=== PATIENT | female | born 2000 | race Caucasian/White ===

== ENCOUNTER 2021-03-04 08:49 | Outpatient (RCR) | payer OTHER, SELFPAY ==
--- NOTE | 2021-03-13 12:51 | MHC.SP.ADU ---
Referring provider: Prema Wright M.D. Reason for Referral: Extensive history of speech/language disorder Type of Treatment: 91285 Evaluation Speech Sound Production WITH Language Date of Plan of Treatment: 03/04/21 Onset of Symptoms/Illness: 01 Date Treatment Started: 03/04/21 Medical Diagnosis: intellectual functioning disability thyroid issues Primary Speech Language Diagnosis: F80.0 Specific developmental disorders of speech and language Secondary Speech Language Diagnosis: F80.2 Mixed receptive-expressive language disorder History Allegra is a 20 year old Egyptian and Georgian speaking female who was evaluated today due to concerns regarding her communication skills. Allegra was referred by her primary care physician, Prema Wright M.D., and was accompanied to this evaluation by her mother, Ms. Maura Allan, who provided all relevant background information in this report. Medical history is significant for thyroid issues and intellectual functioning disability. Allegra has extensive history participating in speech therapy. Allegra participated in Early Intervention (E.I.) services until she aged out at 4 years old. When she began kindergarten, she continued speech therapy services at school. Allegra completed high school where she had an Individualized Education Plan (IEP) which reportedly stipulated services with a speech therapist and computer system validation specialist. Ms. Allan reports that Allegra also had accommodations in the classroom, but was unable to recall them specifically. Allegra lives at home with her mother. Allegra and her mother identified the following concerns: difficulty expressing thoughts, difficulty being understood by others, difficulty understanding what others are saying. Medical History: Intellectual Deficits Social History: Comment: Past Speech Language Therapy: Allegra has extensive history participating in speech therapy. Allegra participated in Early Intervention (E.I.) services until she aged out at 4 years old. When she began kindergarten, she continued speech therapy services at school. Allegra completed high school where she had an Individualized Education Plan (IEP) which reportedly stipulated services with a speech therapist and computer system validation specialist. Reported Speech, Language, Cognition difficulties: Understanding Speaking Comments: Patient presents with a severe articulation impairment and severe receptive-expressive language disorder, likely secondary to intellectual functioning disability Assessment Speech Production: Clinical Impression: Impaired Observations: ARTICULATION: Allegra was administered an articulation assessment tool standardized in Egyptian because she named most images in Egyptian during expressive vocabulary testing. Allegra was evaluated using the Gordon Fristoe Test of Articulation -3 (GFTA-3). The Gordon Fristoe Test of Articulation-3 (GFTA-3) is a standardized assessment designed to evaluate speech sound abilities in children, adolescents, and adults ages 2;0 through 21;11 years old. The GFTA-3 assesses the production of Egyptian consonant sounds in the initial, medial, and final position of words. Allegra was administered the Sounds in Words subtest, to measure her production of consonant sounds in various positions at the word level. Her performance is summarized below: Sounds in Words Score Summary Raw Score: 36 Standard Score: 40 Percentile Rank: <0.1% Interpretation: Very low/severe Standardized assessment revealed severe articulation impairment. Allegra presented with the following phonological processing patterns: consonant cluster reduction (i.e. slide produced as ?side?), assimilation (i.e. table produced as ?ta-tle?), gliding (i.e. red produced as ?wed?), deaffrication (i.e. chair produced as ?share?), final consonant deletion (soap produced as ?so?), and stopping (i.e. thumb produced as ?tumb?). Allegra was approximately 50-60% intelligible to the clinician, an unfamiliar but trained listener. The clinician often asked Allegra for repetition or clarification due to reduced speech intelligibility. Please note that the GFTA-3 is not normed on the bilingual Georgian and Egyptian speaking population. Although Allegra preferred to express herself in Egyptian, these scores are to be interpreted with caution. Tests of Speech & Lang Adults: Clinical Impression: Impaired Observations: EXPRESSIVE/RECEPTIVE VOCABULARY: The Bilingual Georgian Egyptian Receptive One Word Picture Vocabulary Test (ROWPVT-BSE) assesses understanding of vocabulary by measuring an individual?s ability to match an object, action, or concept with its name. Allegra was administered the bilingual version of this assessment, in which prompts could be provided in either Egyptian or Georgian. She responded to all prompts provided in Egyptian. Allegra?s raw score of 70 correlates to a standard score of <55 and a percentile rank of <1%. These scores indicate below average receptive vocabulary skills compared to age matched peers. The Bilingual Georgian Egyptian Expressive One Word Picture Vocabulary Test (EOWPVT-BSE) assesses an individual?s use of vocabulary to label objects, actions or concepts by name. Allegra was administered the bilingual version of this assessment, in which responses in Egyptian or Georgian were both considered valid. She responded to 100% of prompts in Egyptian only. Allegra?s raw score of 44 correlates to a standard score of <55 and a percentile rank of <1%. These scores indicate below average expressive vocabulary skills compared to age matched peers. RECEPTIVE/EXPRESSIVE LANGUAGE: The Comprehensive Assessment of Spoken Language- Second Edition (CASL-2) is a standardized assessment used to evaluate an individual?s oral language skills. The CASL-2 is normed on individuals age 3 to 21 years old, and consists of the following batteries which represent general areas of oral language function: Lexical/ Semantic Tests, Syntactic Tests, and Supralinguistic and Pragmatic Tests. Allegra was administered selected subtests from the Syntactic Tests of the CASL-2. Her performance on individual subtests is summarized below. A standard score between 85 and 115 is considered to be average as compared to same age peers. 1. Sentence Expression: *DEFICIENT Raw Score:8 Standard Score: 40 Percentile Rank: <0.1% The Sentence Expression subtest measures the ?oral expression of accurate syntax; grammatical morphemes, sentence structure, and word order.? Allegra?s raw score of 8 correlates to a standard score of 40 and percentile rank <0.1%, indicating deficient performance as compared to same-age peers. Allegra formulated short phrases and short simple sentences. Allegra demonstrates inconsistent use of early prepositions, copula verb, and present progressive ?ing marker. 2. Grammatical Morphemes: *DEFICIENT Raw Score: 1 Standard Score: 40 Percentile Rank: <0.1% The Grammatical Morphemes subtest measures the ?knowledge, retrieval, and oral expression of inflections and function words.? Allegra?s raw score of 1 correlates to a standard score of 40 and percentile rank of <0.1%. This indicates deficient performance as compared to same age peers. Allegra demonstrates limited use of grammatical morphemes. During this subtest, Allegra completed a cloze phrase with pronoun ?mine.? She demonstrates limited expressive use of prepositions, copula verb, possessive ?s marker, plural ?s/-es marker, past tense verbs. 3. Sentence Comprehension: *DEFICIENT Raw Score: 16 Standard Score: 40 Percentile Rank: <0.1% The Sentence Comprehension subtest was administered to assess Allegra?s ?recognition of the meaning of sentences that have similar structures and words.? Allegra?s raw score of 16 correlated to a standard score of 40 and percentile rank of <0.1%. This indicates deficient performance as compared to peers of the same age. Allegra matched images to sentences utilizing compound subjects/predicates, early pronouns he/they/she, some prepositions, plural ?s, present progressive ?ing, possessive ?s. Allegra demonstrates knowledge of these grammatical forms though her expressive use is limited. Allegra exhibited difficulty matching images to sentences utilizing irregular plural form, irregular past tense, possessive pronouns, comparative adjectives, superlative adjectives, negation. Impressions and Recommendations Summary: Impact on Daily Function/Activity Limitations: Daily Activities: Severe Interpersonal Interactions: Severe Education: Moderate Employment: Moderate Community: Severe Prognosis for Improvement: Good Recommendation for Speech Therapy: Outpatient Speech Therapy Frequency/Duration: 1x weekly x 12 weeks Time to Reassess: 6 months 1.? It is recommended that Allegra participate in 12 weekly speech therapy sessions to target receptive-expressive language skills and compensatory strategies for improved speech intelligibility (pacing, slowing rate of speech, segmentation). The following goals/objectives are recommended: LT.? Allegra will be administered selected standardized assessments with 100% completion to update goals as needed. 2.? Allegra will improve her overall speech intelligibility in connected speech. 3.? Allegra will increase use of grammatical morphemes and increase knowledge and use of vocabulary words within functional categories. Short Term Goals: Goal # : 1.1. Allegra will complete the Communication Activities of Daily Living- 2nd Edition (CADL-2) to further assess functional communication skills with 100% completion over the course of 1-2 sessions. Goal Status: New Goal Goal# : 2.1. Allegra will use a pacing board and segmentation cues to improve articulation while producing multisyllabic words (2-4 syllables) in 80% of trials when provided with an immediate verbal and visual model and additional verbal cues (moderate to maximal assistance). Goal Status: New Goal Goal # : 2.2. Allegra will use segmentation and tactile cues (i.e. clap for final consonant ?ba??g!?) to nile final consonant sounds in 80% of trials when provided with an immediate verbal and visual model and additional verbal cues (moderate to maximal assistance). Goal Status: New Goal Goal # : 3.1. Allegra will form complete SVO (ahfiuxd-qbex-suqfqz) sentences using the correct subject pronoun he/she/they, auxiliary verb is/are, and present progressive ?ing marker with 80% accuracy during a highly structured picture description activity when provided with moderate level cues. 3.2. Allegra will name and sort items into functional categories (i.e. clothing, food, animals, places, occupations, household items, etc.) with 80% accuracy when provided with a choice of 2-3 and moderate level assistance. Goal Status: New Goal Recommended Referrals to be Discussed with Primary Care Provider: Occupational Therapy Eval Patient Education: Completed: Yes Patient/Caregiver Education: Described Results of Evaluation Family/Caregivers expressed understanding of results Finishing Machine Tender Clinican/Clinical Fellow: No Supervisory Statement: N/A Speech Language Pathologist: Chantal Roberts M.A., CCC-FIREARMS ASSEMBLY SUPERVISOR
== END 2021-04-27 12:55 | disposition other institution (70) ==
LOC: HO.SH 08:49
PROVIDERS: Visit Provider Pediatrics
DX: F80.0 Phonological disorder (principal); F80.2 Mixed receptive-expressive language disorder
CPT/HCPCS: 92523

== ENCOUNTER 2024-05-04 10:11 | Outpatient (REF) | payer OTHER, SELFPAY ==
[2024-05-04 12:24] LABS: TSH reflex Free T4 14.16 uIU/mL (0.32-4.0)
[2024-05-04 12:36] LABS: Anion Gap 12 (12-20)
[2024-05-04 12:40] LABS: Blood Urea Nitrogen 11 mg/dL (9-16); Carbon Dioxide 26 mmol/L (22-29); Chloride 107 mmol/L (96-108); Estimated Glomerular Filt Rate > 60; Glucose Random 120 mg/dL (60-115); Magnesium 1.7 mg/dL (1.6-2.6); Potassium 3.6 mmol/L (3.3-5.1); Sodium 141 mmol/L (135-145)
[2024-05-04 13:01] LABS: Free T4 (Free Thyroxine) 0.97 ng/dL (0.71-1.85)
[2024-05-09 21:53] LABS: CK-BB None Detected (None Detected); CK-MB 0 % (<5); CK-MM 100 % (95-100); Creatine Kinase,Total,Serum 38 U/L (29-143)
== END 2024-05-04 10:12 | disposition home or self-care (01) ==
LOC: HO.HHCL 10:11
PROVIDERS: Visit Provider Nurse Practitioner Family
DX: G24.9 Dystonia, unspecified (principal)
CPT/HCPCS: 36415; 80048; 82552; 83735; 84439; 84443

== ENCOUNTER 2024-08-29 11:38 | Outpatient (REF) | payer MEDICAID, SELFPAY ==
[2024-08-29 14:16] LABS: TSH reflex Free T4 2.03 uIU/mL (0.32-4.0)
--- OUTSIDE RECORDS SUMMARY | 2024-08-29 14:40 | XMS_ITS | Encounter Summary ---
Author Organization [facility] Address [address] [place], [place] [address] Phone Care Team Providers Care Expansion Joint Finisher Name Role Phone Prema Wright MD Primary Care Provider [phone] Encounter Details Date Type Department Care Team (Late st Contact Info) Description 09/26/2012 Documentation [facility] [place] [address] [place] [address] Family Medicine, Physician [address] [place] [address] Social History Tobacco Use Types Packs/Day Years Used Date Smoking Tobacco: Never Assessed Comments Unknown Sex and Gender Information Value Date Recorded Sex Assigned at Not on file Legal Sex Female 5:06 PM EDT Gender Identity Not on file Sexual Orientation Not on file documented as of this encounter Plan of Treatment Not on file documented as of this encounter Visit Diagnoses Not on filedocumented in this encounter Care Teams Expansion Joint Finisher Relationship Specialty Start Date End Date Prema Wright MD PCP - General Pediatrics 07/15/20 02/08/23 documented as of this encounter
--- OUTSIDE RECORDS SUMMARY | 2024-08-29 14:40 | XMS_ITS | Encounter Summary ---
Author Organization [facility] Address [address] [place], [place] [address] Phone Care Team Providers Care Supervisor Pumping Station Name Role Phone Prema Wright MD Primary Care Provider [phone] Encounter Details Date Type Department Care Team (Late st Contact Info) Description 10/12/2012 [place] [facility] [place] [address] [place] [address] Family Medicine, Physician [address] [place], [place] [address] Social History Tobacco Use Types Packs/Day Years [...] on filedocumented in this encounter Care Teams Supervisor Pumping Station Relationship Specialty Start Date End Date Prema Wright MD PCP - General Pediatrics 07/15/20 02/08/23 documented as of this encounter
--- OUTSIDE RECORDS SUMMARY | 2024-08-29 14:40 | XMS_ITS | Encounter Summary ---
Author Organization [facility] Address [address] [place], [place] [address] Phone Care Team Providers Care Hasher Machine Operator Name Role Phone Perma Wright MD Primary Care Provider [phone] Encounter Details Date Type Department Care Team (Late st Contact Info) Description 09/26/2012 Documentation [facility] [place] [address] [place] [address] Family Medicine, Physician [address] [place] [address] Social History Tobacco Use Types Packs/Day Years [...] on filedocumented in this encounter Care Teams Hasher Machine Operator Relationship Specialty Start Date End Date Prema Wright MD PCP - General Pediatrics 07/15/20 02/08/23 documented as of this encounter
--- OUTSIDE RECORDS SUMMARY | 2024-08-29 14:40 | XMS_ITS | Encounter Summary ---
Author Organization [facility] Address [address] [place], [place] [address] Phone Care Team Providers Care Metal Burrer Name Role Phone Prema Wright MD Primary Care Provider [phone] Encounter Details Date Type Department Care Team (Late st Contact Info) Description 10/11/2012 Documentation [facility] [place] [address] [place] [address] Family Medicine, Physician [address] [place] [address] Social History Tobacco Use Types Packs/Day Years [...] on filedocumented in this encounter Care Teams Metal Burrer Relationship Specialty Start Date End Date Prema Wright MD PCP - General Pediatrics 07/15/20 02/08/23 documented as of this encounter
--- OUTSIDE RECORDS SUMMARY | 2024-08-29 14:41 | XMS_ITS | Encounter Summary ---
Author Organization [facility] Address [address] [place], [place] [address] Phone Care Team Providers Care Headrig Sawyer Name Role Phone Prema Wright MD Primary Care Provider [phone] Encounter Details Date Type Department Care Team (Late st Contact Info) Description 10/29/2014 Documentation [facility] [place] Family Medicine [address] [place] [address] Family Medicine, Physician [address] [place] [address] Social History Tobacco Use Types Packs/Day Years [...] on filedocumented in this encounter Care Teams Headrig Sawyer Relationship Specialty Start Date End Date Prema Wright MD PCP - General Pediatrics 07/15/20 02/08/23 documented as of this encounter
--- OUTSIDE RECORDS SUMMARY | 2024-08-29 14:41 | XMS_ITS | Encounter Summary ---
Author Organization [facility] Address [address] [place], [place] [address] Phone Care Team Providers Care Pathology Lab Technician Name Role Phone Prema Wright MD Primary Care Provider [phone] Encounter Details Date Type Department Care Team (Late st Contact Info) Description 07/13/2013 Documentation [facility] [place] [address] [place] [address] Family Medicine, Physician [address] [place] [address] Social History Tobacco Use Types Packs/Day Years [...] on filedocumented in this encounter Care Teams Pathology Lab Technician Relationship Specialty Start Date End Date Prema Wright MD PCP - General Pediatrics 07/15/20 02/08/23 documented as of this encounter
--- OUTSIDE RECORDS SUMMARY | 2024-08-29 14:41 | XMS_ITS | Encounter Summary ---
Author Organization [facility] Address [address] [place], [place] [address] Phone Care Team Providers Care Dioramist Name Role Phone Prema Wright MD Primary Care Provider [phone] Encounter Details Date Type Department Care Team (Late st Contact Info) Description 07/25/2013 Documentation [facility] [place] Family Medicine [address] [place] [address] Family Medicine, Physician [address] [place] [address] Social History Tobacco Use Types Packs/Day Years [...] on filedocumented in this encounter Care Teams Dioramist Relationship Specialty Start Date End Date Prema Wright MD PCP - General Pediatrics 07/15/20 02/08/23 documented as of this encounter
--- OUTSIDE RECORDS SUMMARY | 2024-08-29 14:41 | XMS_ITS | Encounter Summary ---
Author Organization [facility] Address [address] [place], [place] [address] Phone Care Team Providers Care Truck Despatcher Name Role Phone Prema Wright MD Primary Care Provider [phone] Encounter Details Date Type Department Care Team (Late st Contact Info) Description 04/19/2014 Documentation [facility] [place] [address] [place] [address] Family Medicine, Physician [address] [place] [address] Social History Tobacco Use Types Packs/Day Years [...] on filedocumented in this encounter Care Teams Truck Despatcher Relationship Specialty Start Date End Date Prema Wright MD PCP - General Pediatrics 07/15/20 02/08/23 documented as of this encounter
--- OUTSIDE RECORDS SUMMARY | 2024-08-29 14:41 | XMS_ITS | Encounter Summary ---
Author Organization [facility] Address [address] [place], [place] [address] Phone Care Team Providers Care Quantitative Software Engineer Name Role Phone Prema Wright MD Primary Care Provider [phone] Encounter Details Date Type Department Care Team (Late st Contact Info) Description 02/01/2014 [place] [facility] [place] [address] [place] [address] Family Medicine, Physician [address] [place] [address] Social History Tobacco Use Types Packs/Day Years [...] on filedocumented in this encounter Care Teams Quantitative Software Engineer Relationship Specialty Start Date End Date Prema Wright MD PCP - General Pediatrics 07/15/20 02/08/23 documented as of this encounter
--- OUTSIDE RECORDS SUMMARY | 2024-08-29 14:41 | XMS_ITS | Encounter Summary ---
Author Organization [facility] Address [address] [place], [place] [address] Phone Care Team Providers Care Access Clinician Name Role Phone Prema Wright MD Primary Care Provider [phone] Encounter Details Date Type Department Care Team (Late st Contact Info) Description 08/04/2012 Documentation [facility] [place] [address] [place] [address] Family Medicine, Physician [address] [place] [address] Social History Tobacco Use Types Packs/Day Years [...] on filedocumented in this encounter Care Teams Access Clinician Relationship Specialty Start Date End Date Prema Wright MD PCP - General Pediatrics 07/15/20 02/08/23 documented as of this encounter
--- OUTSIDE RECORDS SUMMARY | 2024-08-29 14:41 | XMS_ITS | Encounter Summary ---
Author Organization [facility] Address [address] [place], [place] [address] Phone Care Team Providers Care Casino Investigator Name Role Phone Prema Wright MD Primary Care Provider [phone] Encounter Details Date Type Department Care Team (Late st Contact Info) Description 10/29/2015 [place] [facility] [place] [address] [place] [address] Family Medicine, Physician [address] [place], [place] [address] Social History Tobacco Use Types Packs/Day Years [...] on filedocumented in this encounter Care Teams Casino Investigator Relationship Specialty Start Date End Date Prema Wright MD PCP - General Pediatrics 07/15/20 02/08/23 documented as of this encounter
--- OUTSIDE RECORDS SUMMARY | 2024-08-29 14:41 | XMS_ITS | Encounter Summary ---
Author Organization [facility] Address [address] [place], [place] [address] Phone Care Team Providers Care Bilingual Account Manager Name Role Phone Prema Wright MD Primary Care Provider [phone] Encounter Details Date Type Department Care Team (Late st Contact Info) Description 11/11/2015 [place] [facility] [place] [address] [place] [address] Family Medicine, Physician [address] [place], [place] [address] Social History Tobacco Use Types Packs/Day Years [...] on filedocumented in this encounter Care Teams Bilingual Account Manager Relationship Specialty Start Date End Date Prema Wright MD PCP - General Pediatrics 07/15/20 02/08/23 documented as of this encounter
--- OUTSIDE RECORDS SUMMARY | 2024-08-29 14:41 | XMS_ITS | Encounter Summary ---
Author Organization [facility] Address [address] [place], [place] [address] Phone Care Team Providers Care Manager Asset Management Name Role Phone Prema Wright MD Primary Care Provider [phone] Encounter Details Date Type Department Care Team (Late st Contact Info) Description 11/06/2012 Documentation [facility] [place] [address] [place] [address] Family Medicine, Physician [address] [place], [place] [address] Social History Tobacco Use Types Packs/Day Years [...] on filedocumented in this encounter Care Teams Manager Asset Management Relationship Specialty Start Date End Date Prema Wright MD PCP - General Pediatrics 07/15/20 02/08/23 documented as of this encounter
--- OUTSIDE RECORDS SUMMARY | 2024-08-29 14:41 | XMS_ITS | Encounter Summary ---
Author Organization [facility] Address [address] [place], [place] [address] Phone Care Team Providers Care Electronic Pagination System Operator Name Role Phone Prema Wright MD Primary Care Provider Encounter Details Date Type Department Care Team (Late st Contact Info) Description 01/02/2013 Documentation [facility] [place] Family Medicine [address] [place] [address] Family Medicine, Physician [address] [place] [address] Social History Tobacco Use Types Packs/Day Years [...] on filedocumented in this encounter Care Teams Electronic Pagination System Operator Relationship Specialty Start Date End Date Prema Wright MD PCP - General Pediatrics 07/15/20 02/08/23 documented as of this encounter
--- OUTSIDE RECORDS SUMMARY | 2024-08-29 14:41 | XMS_ITS | Clinical Summary ---
Author Organization [employer] Address [address] [facility] [address] [place] [address] Care Team Providers Care Timber Trimmer Name Role Phone Nicole Felix [facility] Primary Care Provider [phone] Allergies Active Allergy Reactions Criticality Noted Date Comments Methimazole Rash Low 07/08/2021 Medications * This document contains information received from the source organization and may not represent a complete record from that organization. ibuprofen 600 MG tablet Take 600 mg by mouth every 6 (six) hours if needed. 0 Active albuterol 108 (90 Base) MCG/ACT inhalerIndicatio ns:Mild intermittent asthma without complication Inhale 1 puff every 6 (six) hours if needed for wheezing. 18 g 1 4 Active ketoconazole (NIZOral) 2 % cream Wash hands gently with soap, dry and apply small amount to hands and nails twice daily 60 g 1 4 Active docusate sodium (Colace) 100 MG capsuleIndicatio ns:Slow transit constipation TAKE 1 CAPSULE BY MOUTH EVERY DAY FOR CONSTIPATION 90 capsule 1 4 Active polyethylene glycol, PEG, 3350 (MiraLax) 17 GM/SCOOP powderIndication s:Slow transit constipation MIX 17 GRAMS IN 8 OZ FLUIDS EVERY DAY IF NEEDED FOR CONSTIPATION. 527 g 1 4 Active levothyroxine (Synthroid, Levoxyl) 112 MCG tablet Take 1 tablet (112 mcg) by mouth Once per day. 90 tablet 1 4 Active Active Problems Problem Noted Date Diagnosed Date Mild intermittent asthma without complication Assessment & Plan (05/03/2024 11:56 AM EDT): No recent asthma exacerbation Asthma plan Use your inhaler as prescribed Slow transit constipation 05/03/2024 Assessment & Plan (05/03/2024 11:23 AM EDT): Increase fiber and water intake Increase physical activities such as walking Set a regular time for daily bowel movement Take medication as prescribed Onychomycosis 05/03/2024 Assessment & Plan (05/03/2024 11:47 AM EDT): Finger nails: thickened, brittle, partially from the nail bed Keep hands clean and finger nails short Apply prescribed cream as directed Encounter for adult wellness visit 05/03/2024 Assessment & Plan (05/03/2024 11:53 AM EDT): Keep all medical appointments Take all meds as prescribed Take your vaccines [place] teeth twice a day; floss once. - Visit dentist twice a year. -Protect your hearing. -Wear safety belt. Eat 3 meals a day, especially breakfast Eat healthy and focus on healthyfood choices daily fruits, vegetables, grains, low fat milk, low carbohydrate and fat Maintain healthy weight. Eat with family Be physically active at least 45 minutes a day Graves disease 05/02/2024 Fungal dermatitis 09/15/2022 Postablative hypothyroidism 09/13/2022 Overview (05/03/2024): 07/2012: Onset Graves disease started Methimazole 08/2012: Discontinued due to allergic reaction, 02/2013: s/p radioactive ablation 2013: started levothyroxine levothyroxione 100 mcg, yearly f/ups Last seen Dr Washburn 07/16/21 Assessment & Plan (06/04/2024 12:26 PM EST): TSH 05/04/2024 14.16 Currently on 112 mcg of levothyroxine daily Allegra maxwell reports daughter still taking the old dosage of 88 mcg, Mum told to start to start the 112 mcg. Denies fever, nausea,constipation. Plan Start taking levothyroxine 112 mcg as prescribed Patient education - Take your medication on an empty stomach at 30 minutes before eating breakfast Do not take medication with caffeine drinks such as coffee and tea Do not take 2 doses to make up for missed dose Repeat blood work for TSH 6-8 weeks Assessment & Plan (05/03/2024 10:53 AM EDT): Pt symptomatic with constipation, fatigue and low mood Currently takes 112 mcg levothyroxine No current TSH lab result overdue TSH with reflex to FT4 lab Depressed mood 07/09/2021 Genetic defect 07/24/2020 Overview (05/02/2024): History of Microcephaly and severe developmental delays, chromosomes normal; estimated IQ 54 per Neuropsych eval 2007; MRI with no focal abnormalities beyond microcephaly; Genetics consult 01/2018 [employer]- 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 Maternal FISH studies ordered 04/2018 Contracture of joint of both hands 01/15/2020 Assessment & Plan (05/03/2024 11:18 AM EDT): Referral to neurologist Lab work Stretch exercises Dystonia 10/16/2018 Overview (05/03/2024): 10/2018: Clenching of hands-Evaluated by neurologist Dr Claudia Sandoval, [facility]. No treatment, no meds. 2020:Worsening clenching of hands. Mri brain/C-spine unremarkable Referred to PMR at [facility] - canceled 3 appts d/t lack of ID [facility]- Dystonia, facial pain possible migraine variant,suggested PM+R OT scheduled for [facility] rehab: no show Assessment & Plan (05/03/2024 11:10 AM EDT): Dystonia with flexion contractures Chronic wetness Maceration of bilateral palms with fungal dermatitis and onychomycosis Referral to neurologist Lab blood work Jose Luis hands and keep dry. Apply antifungal cream as prescribed Keep nails short Keep rolled clean hand towels in hands to absorb excess moisture Severe intellectual disability 06/12/2010 Overview (05/03/2024): Microcephaly and developmental delays, chromos neg; IQ 54 per Neuropsych 2007; MRI with no focal abnormalities beyond microcephaly 11/2020: Neuropsych eval by Dr Tyesha Kee : Severe ID, recommended continued participation in the [employer] program, anticipated need for ongoing day treatment program for disabled adults when she reaches 23, mother encouraged to pursue legal guardianship as well as DDS services support. Speech language therapy for adaptive communication, OT, and in-home behavioral support for adaptive skills and safety training 03/2021: ST eval at [facility] documenting severe communication deficits, recommended weekly sessions x 12 Patient was discharged from care 04/2021 for no show and inability to reach family 09/2022: Mother has been unable to submit the DDS application prepared last year with help of our [facility] team, and has not been able to prepare recommended guardianship application, very overwhelmed with care of pt and several other children with mental/behavioral health care needs. [facility] team involvement ongoing, pt about to transfer care to [facility] now that age 22. Discuss additional supports as pt with documented need for substantial ongoing support. 05/02/2024 Patient care transferred to [facility] Assessment & Plan (05/03/2024 10:45 AM EDT): Severe intellectual disability with contractures of finger joints unable to self perform ADLs. Mother provides care and over whelmed with care giving Patient requires substantial ongoing support. Apply for [employer] support for ADLs Will discuss restarting the application process for legal guardianship Encounters * This document contains information received from the source organization and may not represent a complete record from that organization. Date Type Department Care Team Description 07/02/2024 Telephone [facility] [address] [place] [phone] Nicole Felix, MOTHERCRAFT NURSE 06/29/2024 Telephone [facility] [address] [place] [phone] Nicole Felix FNP Medication Question 06/26/[address] [address] Nicole Felix, MOTHERCRAFT NURSE 05/30/2024 3:30 PM EST Office Visit [address] [address] [place], Nicole, MOTHERCRAFT NURSE Postablative hypothyroidism (Primary Dx) from Last 3 Months Immunizations Name Administration Dates Next Due HPV 9-Valent 11/13/2015 Hep A, ped/adol, 2 dose 11/13/2015 Meningococcal [id number] 12/30/2017 Family History Medical History Relation Name Comments Asthma Maternal Grandmother Hypertension Maternal Grandmother Relation Name Status Comments Maternal Grandmother Social History Tobacco Use Types Packs/Day Years Used Date Smoking Tobacco: Never Smokeless Tobacco: Never Tobacco Cessation:Counseling Given: Not Answered Alcohol Use Standard Drinks/Week Comments Never 0 (1 standard drink = 0.6 oz pur e alcohol) Depression Answer Date Recorded Patient Health Questionnaire-9 Score 0 05/02/2024 Patient Health Questionnaire-9 Score 0 05/02/2024 Last PHQ-9: Questionnaire Data Not on file 1 Housing Stability Answer Date Recorded What is your housing situation today? I have mikael hutchinson 05/02/[address] you li ve. Do you have problems with any of the following? None of the above 05/02/2024 Food Insecurity Answer Date Recorded Within the past 12 months, y ou worried that your food would run out before you got money to buy more: Never True 05/02/2024 Within the past 12 months,th e food you bought just didn't last and you didn't have enough money to get more: Never True Transportation Answer Date Recorded In the past 12 months, has l ack of transportation kept you from medical appts, meetings, work or from getting things needed for daily living? No 05/02/2024 Utilities Answer Date Recorded In the past 12 months, has t he electric, gas, oil or water company threatened to shut off services in your home? No 05/02/2024 Depression Answer Date Recorded Patient Health Questionnaire-2 Score 0 05/02/2024 Internet Access Answer Date Recorded Internet Access Q1 Yes 05/02/2024 Internet Access Q2 Not on file 05/02/2024 Comments No Sex and Gender Information Value Date Recorded Sex Assigned at Female 12/19/2023 9:33 AM EDT Legal Sex Female 9:32 AM EDT Gender Identity Female 12/19/2023 9:33 AM EDT Sexual Orientation Straight 05/23/2024 10 :20 AM EST Last Filed Vital Signs Vital Sign Reading Time Taken Comments Blood Pressure 92/64 05/30/2024 3:21 PM EST Pulse 71 05/30/2024 3:21 PM EST Temperature 36.6 ??C (97.8 ??F) 05/02/2024 2:36 PM ED T Respiratory Rate 12 05/30/2024 3:21 PM EST Oxygen Saturation 98% 05/30/2024 3:21 PM EST Inhaled Oxygen Concentration - - Weight 59.2 kg (130 lb 9.6 oz) 05/30/2024 3:21 P M EST Height 157.5 cm (5' 2 ) 05/30/2024 3:21 PM EST Body Mass Index 23.89 05/30/2024 3:21 PM EST Plan of Treatment Health Maintenance Due Date Last Done Comments Chlamydia and Gonorrhea Screening 2001 HIV Screening 2001 Family Planning (PISQ) 2016 Hepatitis C Screening 2019 Pneumococcal Vaccine: Pediatrics (0 to 5 Years) and At-Risk Patients (6 to 49) Years) (1 of 2 - PCV) 2020 12/28/2002, 01/09/2002, 2001, Additional history exists Pap Smear 2022 DTaP/Tdap/Td Vaccines (7 - Td or Tdap) 06/19/2023 06/19/2013, 07/13/2005, 12/28/2002, Additional history exists COVID-19 Vaccine ( season) 2024 Influenza Vaccine (#1) 2024 4, 06/19/2013, 03/30/2012, Additional history exists Alcohol/Substance Use Screening 05/02/2025 05/02/2024 Depression Screening 05/02/2025 05/02/2024, 05/02/20 24 SDOH Screening 05/02/2025 05/02/2024 Tobacco Screening 05/30/2025 05/30/2024 Zoster Vaccines (1 of 2) 2051 RSV Patients and Patients Aged 60 years or older (1 - 1-dose 75+ series) 2076 Hepatitis B Vaccines Completed 04/12/2002, 2001, 2001 HIB Vaccines Completed 10/03/2002, 070 03/2002, 2001, Additional history exists IPV Vaccines Completed 07/13/2005, 04/03, 2001, Additional history exists HPV Vaccines Completed 11/13/2015, 07/02/2014 Hepatitis A Vaccines Completed 11/13/2015, 07/02/20 14 Meningococcal Vaccine Completed 12/30/2017, 013 RSV under 20 months Aged Out No longe r eligible based on patient's age to complete this topic Rotavirus Vaccines Aged Out No longer eligible based on patient's age to complete this topic Procedures Procedure Name Priority Date/Time Associated Diagnosis Comments TSH W/REFLEX TO FT4 Routine 08/29/2024 11:39 AM EST Postablative hypothyroidism from Last 3 Months Results * TSH W/Reflex to FT4 (08/29/2024 11:39 AM EST) TSH reflex Free T4 2.03 0.32 - 4.0 uIU/mL [facility] Blood Venous blood specimen / Unknown 08/29/2024 11:39 AM EST 08/29/2024 1:34 PM EST us Nicole Felix MOTHERCRAFT NURSE LAB BLOOD ORDERABLES Final Res ult [facility] [address] [place] [address] [phone] from Last 3 Months [facility] Care Teams Timber Trimmer Relationship Specialty Start Date End Date Nicole Felix FNP [address] [place] [address] PCP - General Family Medicine 05/02/24
--- OUTSIDE RECORDS SUMMARY | 2024-08-29 14:41 | XMS_ITS | Clinical Summary ---
Author Organization [facility] Address [address] [place] [phone] Phone Care Team Providers Care Clerical Associate Name Role Phone Unavailable Primary Care Provider Unavailabl e Allergies Active Allergy Reactions Criticality Noted Date Comments Methimazole Rash Low 07/08/2021 Medications Misc. Devices (PILL SPLITTER) miscIndications: Acute parotitis Use as directed 1 each 8 Active Additional Information Patient not taking.Reported on 09/27/2018 albuterol HFA (PROAIR HFA) 108 (90 Base) MCG/ACT inhalerIndicatio ns:Mild intermittent asthma without complication 2-4 puffs q4h prn 1 Units 8 Active Additional Information Patient not taking.Reported on 07/08/2021 ibuprofen 600 MG tablet Take 600 mg by mouth every 6 (six) hours as needed. for pain 0 0 Active desogestrel-ethi nyl estradiol 0.15-30 MG-MCG per tablet Take 1 tablet by mouth daily. Active docusate sodium 100 MG capsuleIndicatio ns:Chronic idiopathic constipation Take 1 capsule (100 mg total) by mouth 2 (two) times a day as needed for constipation. 60 capsule 11 3 Active levothyroxine 88 MCG tabletIndication s:Graves disease Take 1 tablet (88 mcg total) by mouth daily. 90 tablet 1 3 Active Active Problems Problem Noted Date Diagnosed Date Fungal dermatitis 09/15/2022 Postablative hypothyroidism 09/13/2022 Overview (09/15/2022): Graves disease with onset 07/2012, started Methimazole 08/16...but stopped due to allergic reaction, s/p radioactive ablation 02/2013; started levothyroxine in 2013, on levothyroxione 100 mcg, yearly f/ups Last seen Dr Washburn 07/16/21 - Drop LT to 88 mcg. repeat labs in 2 mos with Celiac screen- RTC 1 yr 07/2022: Reportedly out of Thyroxine for weeks and unable to get refill from [facility] as overdue for routine follow up. Pt symptomatic with constipation, fatigue and low mood today. Refill sent today and mother agrees to book f/up MAYE. Assessment & Plan (09/15/2022 12:29 PM EDT): Reportedly out of Thyroxine for weeks and unable to get refill from [facility] as overdue for routine follow up since 07/2022. Pt symptomatic with constipation, fatigue and low mood today. Refill sent today and mother agrees to book f/up MAYE. 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 Sandoval, Dx Dystonia, CP, Static Encephalopathy.. OT referral placed at [facility] 01/2020 but pt only seen for several sessions. 09/12/2020: MRI brain and C-spine WNL except subtle disk space narrowing with ? tiny central disk herniation , but no compressive pathology appreciated.- Reviewed by/reassurance from [facility] NS Summer 2020 attempt at [facility], [facility] made but lack of pt ID a barrier and mother unable to manage logistics. Still has not applied for DDS Assessment & Plan (07/09/2021 2:53 PM EST): Encouraged mother to pursue the OT therapy for Allegra to facilitate greater use of her hands. MH CC KT involved and in to speak with mother today Assessment & Plan (01/15/2021 8:10 PM EDT): OT scheduled for [facility] on 01/23/21 at 9:45am, and will refer to [facility] Re[facility] to further evaluate medical treatment options as mother unalbe to get the photo ID requested/required for services at [facility] clinic. Assessment & Plan (09/09/2020 11:51 AM EST): Progressively worsening flexion contractures of B 5th through the 3rd fingers over the past several years with loss of finger extension, intrinsic muscle strength and wrist flexion, with generalized hyper reflexia including 1-2 beats of clonus at ankles.Paraesthesia of the face but not clearly of the arms/hands, but pt with developmental delays- clinical concern for anatomic/neurologic lesion at C-spine level Refer to [facility]R for formal eval and ? Splint fabrication, but plan MRI of brain and C-spine, with and without contrast.Check with Dr Stauffer for imaging clarification Flexural eczema 01/05/2019 Overview (09/15/2022): Mild, emollient cream and 2.5% HC cream PRN Assessment & Plan (01/14/2021 2:34 PM EDT): Recently much improved- but off and on- 2.5% HC cream PRN Dystonia 10/16/2018 Overview (07/09/2021): 10/2018: Clenching of hands-Evaluated by neurologist Dr Claudia Sandoval, [facility]. No treatment, no meds. Worsening 2020 with normal Mri brain/C-spine Referred to PMR at [facility] - canceled 2 appts, 10/09, and 11/12- booked for 12/24 but refused visit d/t lack of ID 12/04/2020: [facility] Neurology- Dystonia, facial pain possible migraine variant,suggested PM+R OT scheduled for [facility] on 01/23/21 at 9:45 am Assessment & Plan (09/15/2022 12:18 PM EDT): Dystonia with flexion contractures , s/p attempted OT interventions in past hampered by NS and logistical barriers. Currently with fungal dermatitis and onychomycosis due to suspected chronic wetness from inability to extend fingers for carefull drying. Recommend re-engagement with OT/PT Assessment & Plan (07/09/2021 2:49 PM EST): Mother reports ongoing OT treament for pts dystonia but no notes received. KT to investigate Assessment & Plan (01/14/2021 2:30 PM EDT): OT scheduled for [facility] on 01/23/21 at 9:45am , refer to [facility] PM+R as mother very busy, hard to find time to go and get her an ID. 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 Maternal FISH studies ordered 04/2018 but ? 11/2020: Neuropsych eval by Dr Tyesha Kee : Severe ID, recommended continued participation in the [employer] program, anticipated need for ongoing day treatment program for disabled adults when she reaches 23, mother encouraged to pursue legal guardianship as well as DDS services support. Speech language therapy for adaptive communication, OT, and in-home behavioral support for adaptive skills and safety training 03/2021: [facility] at [facility] documenting severe communication deficits, recommended weekly sessions x 12- discharged from care 04/2021 for NS, inability to reach family 09/2022: Mother has been unable to submit the DDS application prepared last year with held of our [facility] team, and has not been able to prepare recommended guardianship application, very overwhelmed with care of pt and several other children with mental/behavioral health care needs. [facility] team involvement ongoing, pt about to transfer care to [facility] now that age 22. Discuss additional supports as pt with documented need for substantial ongoing support. Assessment & Plan (09/15/2022 12:36 PM EDT): Mother has been unable to submit the DDS application prepared last year with held of our [facility] team, and has not been able to prepare recommended guardianship application as recommended by Dr Kee 11/2020, very overwhelmed with care of pt and several other children with mental/behavioral health care needs. [facility] team involvement ongoing, pt about to transfer care to [facility] now that age 22. Discuss additional supports as pt with documented need for substantial ongoing support. Assessment & Plan (07/09/2021 3:19 PM EST): [facility] in to discuss prioritization of care needs with mother today who is admittedly overwhelmed with solo care responsibilities for pt, as well as her 16,13,12 yo siblings as well as a new 6 month old grandchild. Mother invited to make appointment to come and complete DDS application with RN CC assistance, as this will be be rosario to ongoing care and support services for her, as well as to assist with the legal guardianship application process. Assessment & Plan (01/15/2021 8:08 PM EDT): RN CC to assist/support mother with DDS registration and legal guardianship paperwork process. Resolved Problems Problem Noted Date Diagnosed Date Resolved Date Counseling and coordination of care 07/09/2019 07/16/2022 Assessment & Plan (06/29/2021 1:20 PM EST): Medically complex pt with microcephaly, severe ID and genetic difference, Graves disease Graves disease 07/18/2012 09/15/2022 Overview (09/15/2022): Onset 07/2012, started methimazole 08/16...dev allergy so stopped, s/p radioactive ablation 02/13; started levothyroxine in 2013, yearly f/ups Assessment & Plan (09/15/2022 12:20 PM EDT): Reportedly out of Thyroxine for weeks and unable to get refill from [facility] End[facility] as overdue for routine follow up. Pt symptomatic with constipation, fatigue and low mood today. Refill sent today and mother agrees to book f/up MAYE. Assessment & Plan (07/09/2021 2:46 PM EST): F/up Appointment set with Dr Washburn in 1 week - mother would like to draw labs today just in case something comes up Assessment & Plan (01/14/2021 2:00 PM EDT): Overdue for thyroid labs- ordered 04/[address] Washburn- draw today Constipation 03/30/2012 07/09/2021 Overview (12/30/2017): flares...at times uses bisacodyl. [place] in 2017 Assessment & Plan (01/14/2021 2:16 PM EDT): Intermittent constipation. Has Miralax at home not taking regularly but admits to daily hard stools with some bleeding recently. Mild intermittent asthma without complication 08/20/19 11 09/15/2022 Overview (01/15/2021): Mild intermittent, with URIs Assessment & Plan (09/15/2022 12:25 PM EDT): NO albuterol need or use in recent years reported. Assessment & Plan (07/09/2021 3:16 PM EST): No recent active symptoms, Albuterol refill and Flu vaccine declined today Assessment & Plan (01/14/2021 2:35 PM EDT): Has not needed albuterol in > 6 mos- mother declines need for refill today Assessment & Plan (01/02/2020 2:03 PM EDT): Normal chest exam today- suggest albuterol every 6-8 hrs until illness sx resolve. Immunizations Immunization Administration Dates Next Due DTaP 5 07/13/2005, 3,01/09/2002,11/22,2001 H1N1 04/11/2009 HPV Vaccine 9 Valent 11/13/2015 HPV, Quadrivalent 07/02/2014 Hep A, ped/adol 11/13/2015,07/02/2014 Hep B, ped/adol 04/12/2002,2001,2001 Hib (PRP-T) 10/03/2002, 2,2001,09/22 IPV 07/13/2005, 2,2001,09/22 Influenza Split 03/30/2012,04/01/2011 Influenza, injectable, quadrivalent 07/02/2014 Influenza, injectable, quadr ivalent, preservative free 06/19/2013 Influenza, injectable, trivalent 04/11/2009 MMR 07/13/2005,07/05/2002 Meningococcal Conj (Menactra) MCV4P 12/30/2017,1 08/20/2012 Pneumococcal Conjugate 12/28/2002,2001,2001,09/22 Tdap 06/19/2013 Varicella 05/03/2014,07/05/2002 Family History Relation Name Status Comments Father Alive Father: Alive a nd well Maternal Grandmother Materna l grandmother: Asthma Mother Maura Alive Mother: Alive a nd well Other Family history of Migraines, Family history of Asthma, No family history of Obesity, Family history of Hyperlipidemia, Family history of Diabetes mellitus, Family history of Deafness Sister Alive Sister: Alive a nd well Social History Tobacco Use Types Packs/Day Years Used Date Smoking Tobacco: Never Smokeless Tobacco: Never Comments:Never smoker Alcohol Use Standard Drinks/Week Comments No 0 (1 standard drink = 0.6 oz pur e alcohol) Hunger/Food Answer Date Recorded In the last 12 months, did y ou or your family ever eat less than you felt you should because there wasn't enough money for food? No 09/13/2022 Stable Housing Answer Date Recorded Are you worried that in the next 2 months you may not have stable housing? No 09/13/2022 Transportation Concerns Answer Date Rec orded In the last 12 months, have you or your family ever had to go without healthcare because you didn't have a way to get there? No 09/13/2022 Hazards in Home Answer Date Recorded Think about the place you li ve. Do you have problems with any of the following? Pests (mice or roaches), mold, no/not working smoke detectors, water leaks, no window guards. No 2022 Financing Utilities Answer Date Recorde d In the last 12 months, has t he electric, gas, oil, or water company threatened to shut off your services in your home? No 09/13/2022 Safety at Home Answer Date Recorded Are you or your family worried about feeling saf e in your home? No 09/13/2022 Outside Support Answer Date Recorded Do you feel that you need mo re support from other people or programs to help you care for yourself or your family? No 09/13/2022 Understanding Health Concerns Answer Da te Recorded Do you need help understandi ng your or your child's healthcare needs (diagnosis, medications, plan, etc.)? Yes 09/13/2022 Financing Health Concerns Answer Date R ecorded In the last 12 months, was t here a time when your child needed to see a doctor or get medications or supplies but could not because of cost? No 09/13/2022 Missing School or Work Answer Date Kings rded Did you or your child miss s chool or work because of a health problem that could have been avoided? No 09/13/2022 Comments No Sex and Gender Information Value Date Recorded Sex Assigned at Not on file Legal Sex Female 5:06 PM EDT Gender Identity Not on file Sexual Orientation Not on file Last Filed Vital Signs Vital Sign Reading Time Taken Comments Blood Pressure 100/70 09/13/2022 11:29 AM EDT manual repeat 15 mins later Pulse 74 09/13/2022 11:12 AM EDT Temperature 36.3 ??C (97.3 ??F) 09/13/2022 1 1:12 AM EDT Respiratory Rate - - Oxygen Saturation - - Inhaled Oxygen Concentration - - Weight 60.9 kg (134 lb 3.2 oz) 09/13/2022 11:12 AM EDT Height 157.5 cm (5' 2.01 ) 09/13/2022 1 1:12 AM EDT Body Mass Index 24.54 09/13/2022 11:12 AM EDT Plan of Treatment Health Maintenance Due Date Last Done Comments Men B Vaccine (1 of 2 - Standard) 2017 DTaP,Tdap,and Td Vaccines (7 - Td or Tdap) 06/19/2023 06/19/2013, 07/13/2005, 12/28/2002, Additional history exists Influenza Vaccines (#1) 2024 07/02/20 14, 06/19/2013, 03/30/2012, Additional history exists COVID-19 Vaccine (1 - 2023-2 5 season) 2024 Hepatitis B Vaccines Completed 04/12/2002, 2001, 2001 HIB Vaccines Completed 10/03/2002, 03/2002, 2001, Additional history exists Pneumococcal Vaccine Completed 12/28/2002, 01/09/2002, 2001, Additional history exists IPV Vaccines Completed 07/13/2005, 04/03, 2001, Additional history exists MMR Vaccines Completed 07/13/2005, 07/05/2002 Varicella Vaccines Completed 05/03/2014, 07/05/2002 HPV Vaccines Completed 11/13/2015, 07/02/2014 Hepatitis A Vaccines Completed 11/13/2015, 07/02/20 14 Meningococcal Vaccine Completed 12/30/2017, 013 Procedures * Due to [place] [employer] law, this organization might not be sharing sensitive test results. Procedure Name Priority Date/Time Associated Diagnosis Comments CHLAMYDIA AND GONORRHEA, AMPLIFIED Routine 01/05/2019 11:28 AM EDT Screening examination for bacterial and spirochetal disease from Last 3 Months or Most Recently Relevant to Health Maintenance Results * Due to [place] [employer] law, this organization might not be sharing sensitive test results. * Chlamydia and Gonorrhea, Amplified (01/05/2019 11:28 AM EDT) Pathologist [facility] Chlamydia Trachomatis, DNA Probe NEGATIVE (NEG) [facility] Comment: No Chlamydia Trachomatis RNA detected in this patient's sample ? (REFERENCE RANGE/NORMAL VALUE: NOT DETECTED) ? Note: This test uses paleobotanist- mediated amplification method to detect rRNA from C. Trachomatis URINE GC AMP PROBE NEGATIVE (NEG) [facility] Comment: No Neisseria Gonorrhoeae RNA detected in this patient's sample ? (REFERENCE RANGE/NORMAL VALUE: NOT DETECTED) ? NOTE: This test uses paleobotanist-mediated amplification method to detect rRNA from N.Gonorrhoeae. A negative result does not preclude infection. In the case of a negative urine result, testing of an endocervical(female) or urethral (male) specimen is recommended if there is high clinical suspicion of infection. Due to very high sensitivity of Nucleic Acid Amplification Test, false positive results may occur. Therefore, specimen handling is extremely important. In patients in whom the disease is unlikely, additional sample for testing should be considered after an initial positive result. The performance characteristics of this test have not been evaluated in children. The Aptima Combo2 assay is not intended for the evaluation of suspected sexual abuse or for other medico-legal indications. The ordering provider should assess if the patient had consensual sex without risk of sexual abuse. Consult the [facility] if needed. Contact phone number . Therapeutic failure or success cannot be determined with the Aptima Combo2 assay since nucleic acid may persist following appropriate antimicrobial therapy. The Centers for Disease Control and Prevention (CDC) recommends confirmatory retesting using culture or a different nucleic acid amplification test when positive results occur, if indicated. Testing performed or reported by [facility], a Service of [facility], [address] [place] [address] [place] [address] Urine 01/05/2019 11:2 8 AM EDT 01/05/2019 8:18 PM EDT us Kita Schultz NP LAB MICROBIOLOGY - GENERAL ORDER ABELARDO Final Result [facility] from Last 3 Months or Most Recently Relevant to Health Maintenance
--- OUTSIDE RECORDS SUMMARY | 2024-08-29 14:41 | XMS_ITS | Encounter Summary ---
Author Organization [facility] Address [address] [place] [address] Phone Care Team Providers Care Crating And Moving Estimator Name Role Phone Prema Wright MD Primary Care Provider [phone] Encounter Details Date Type Department Care Team (Late st Contact Info) Description 02/17/2017 Conversion Encounter [facility] - [address] [address] Social History Tobacco Use Types Packs/Day Years Used Date Smoking Tobacco: Never Comments:Never smoker Comments Unknown Sex and Gender Information Value Date Recorded Sex Assigned at Not on file Legal Sex Female 5:06 PM EDT Gender Identity Not on file Sexual Orientation Not on file documented as of this encounter Plan of Treatment Not on file documented as of this encounter Visit Diagnoses Not on filedocumented in this encounter Care Teams Crating And Moving Estimator Relationship Specialty Start Date End Date Prema Wright MD PCP - General Pediatrics 07/15/20 02/08/23 documented as of this encounter
--- OUTSIDE RECORDS SUMMARY | 2024-08-29 14:41 | XMS_ITS | Encounter Summary ---
Author Organization [facility] Address [address] [place], [place] [address] Phone Care Team Providers Care Checker In Name Role Phone Prema Wright MD Primary Care Provider [phone] Encounter Details Date Type Department Care Team (Late st Contact Info) Description 08/31/2012 Documentation [facility] [place] [address] [place] [address] Family Medicine, Physician [address] [place] [address] Social History Tobacco Use Types Packs/Day Years [...] on filedocumented in this encounter Care Teams Checker In Relationship Specialty Start Date End Date Prema Wright MD PCP - General Pediatrics 07/15/20 02/08/23 documented as of this encounter
--- OUTSIDE RECORDS SUMMARY | 2024-08-29 14:41 | XMS_ITS | Encounter Summary ---
Author Organization [facility] Address [address] [place], [place] [id number] Phone Care Team Providers Care Test Driller Name Role Phone Prema Wright MD Primary Care Provider [phone] Encounter Details Date Type Department Care Team (Late st Contact Info) Description 12/04/2014 Documentation [facility] [address] [place] [address] Family Medicine, Physician [address] [place] [address] Social History Tobacco Use Types Packs/Day Years [...] on filedocumented in this encounter Care Teams Test Driller Relationship Specialty Start Date End Date Prema Wright MD PCP - General Pediatrics 07/15/20 02/08/23 documented as of this encounter
--- OUTSIDE RECORDS SUMMARY | 2024-08-29 14:41 | XMS_ITS | Encounter Summary ---
Author Organization [facility] Address [address] [place], [place] [id number] Phone Care Team Providers Care Set Up Mechanic Coating Machines Name Role Phone Prema Wright MD Primary Care Provider [phone] Encounter Details Date Type Department Care Team (Late st Contact Info) Description 10/12/2013 Documentation [facility] [place] [address] [place] [address] Family Medicine, Physician [address] [place], [place] [address] Social History Tobacco Use Types Packs/Day Years [...] on filedocumented in this encounter Care Teams Set Up Mechanic Coating Machines Relationship Specialty Start Date End Date Prema Wright MD PCP - General Pediatrics 07/15/20 02/08/23 documented as of this encounter
--- OUTSIDE RECORDS SUMMARY | 2024-08-29 14:41 | XMS_ITS | Encounter Summary ---
Author Organization [facility] Address [address] [place], [place] [id number] Phone Care Team Providers Care Regional Engagement Consultant Name Role Phone Prema Wright MD Primary Care Provider [phone] Encounter Details Date Type Department Care Team (Late st Contact Info) Description 08/30/2012 Documentation [facility] Family Medicine [address] [place] [address] Family Medicine, Physician [address] [place] [address] Social History Tobacco Use Types Packs/Day Years [...] on filedocumented in this encounter Care Teams Regional Engagement Consultant Relationship Specialty Start Date End Date Prema Wright MD PCP - General Pediatrics 07/15/20 02/08/23 documented as of this encounter
--- OUTSIDE RECORDS SUMMARY | 2024-08-29 14:41 | XMS_ITS | Encounter Summary ---
Author Organization [facility] Address [address] [place] [address] Phone Care Team Providers Care Public Safety Director Name Role Phone Prema Wright MD Primary Care Provider [phone] Encounter Details Date Type Department Care Team (Late st Contact Info) Description 12/16/2016 Documentation [facility] [place] [address] [place], [place] [id number] Family Medicine, Physician [address] [place] [address] Social History Tobacco Use Types Packs/Day Years [...] on filedocumented in this encounter Care Teams Public Safety Director Relationship Specialty Start Date End Date Prema Wright MD PCP - General Pediatrics 07/15/20 02/08/23 documented as of this encounter
--- OUTSIDE RECORDS SUMMARY | 2024-08-29 14:41 | XMS_ITS | Encounter Summary ---
Author Organization [facility] Address [address] [place], [place] [id number] Phone Care Team Providers Care Coal Or Ore Controller Name Role Phone Prema Wright MD Primary Care Provider [phone] Encounter Details Date Type Department Care Team (Late st Contact Info) Description 01/31/2014 [place]ation [facility] [place] [address] [place] [address] Family Medicine, Physician [address] [place] [address] Social History Tobacco Use Types Packs/Day Years [...] on filedocumented in this encounter Care Teams Coal Or Ore Controller Relationship Specialty Start Date End Date Prema Wright MD PCP - General Pediatrics 07/15/20 02/08/23 documented as of this encounter
== END 2024-08-29 11:39 | disposition home or self-care (01) ==
LOC: HO.HHCL 11:38
PROVIDERS: Visit Provider Nurse Practitioner Family
DX: E03.9 Hypothyroidism, unspecified (principal)
CPT/HCPCS: 36415; 84443

== ENCOUNTER 2025-01-23 11:59 | Outpatient (REF) | payer MEDICAID, SELFPAY ==
--- OUTSIDE RECORDS SUMMARY | 2025-01-23 12:41 | XMS_ITS | Clinical Summary ---
Author Organization [facility] Address [address] [place] [phone] Phone Care Team Providers Care Bituminous Distributor Operator Name Role Phone Kita Schultz NP Primary Care Provider Social History Tobacco Use Types Packs/Day Years Used Date Smoking Tobacco: Never Assessed Education Answer Date Recorded Are you interested in more education? Not on joshua e 10/29/2022 Are you concerned about learning? Not on file 10/29/2022 No 10/29/2022 No 10/29/2022 Digital Access Answer Date Recorded No 11/29/2022 No 11/29/2022 No 11/29/2022 Reliable internet access at home? Not on file 11/29/2022 Device with a working camera? Not on file Comments Unknown Sex and Gender Information Value Date Recorded Sex Assigned at Not on file Legal Sex Female 8:45 PM EDT Gender Identity Not on file Sexual Orientation Not on file Plan of Treatment Health Maintenance Due Date Last Done Comments DEPRESSION SCREENING 2013 SMOKING Hx and SMOKELESS TOBACCO SCREENING 2014 CHLAMYDIA SCREENING 2017 MENINGOCOCCAL VACCINES (B) (1 of 2 - Standard) 2017 HEPATITIS C SCREENING 2019 HIV ONE-TIME SCREENING (18-65 YEARS) 2019 PAP SMEAR 2022 Adult Td,Tdap Booster 06/19/2023 06/19/2013 COVID-19 VACCINE ( season) 2024 HIB VACCINES Completed 10/03/2002, 03/2002, 2001, Additional history exists PNEUMOCOCCAL VACCINES (0-49 years) Aged Out 12/28/2002, 01/09/2002, 2001, Additional history exists No longer eligible based on patient's age to complete this topic HEPATITIS A VACCINES Completed 11/13/2015, 07/02/20 14 HPV VACCINES Completed 11/13/2015, 07/02/2014 MENINGOCOCCAL VACCINES (ACWY) Completed 12/30/2017, 06/19/2013 Medical Devices Not on file Insurance [employer] Care Teams Bituminous Distributor Operator Relationship Specialty Start Date End Date Kita Schultz NP [address] [place] [phone] PCP - General Pediatrics 02/28/20 Additional Source Comments The information contained in this document represents components of the legal health record. It is not the complete legal health record.[facility]
--- OUTSIDE RECORDS SUMMARY | 2025-01-23 12:41 | XMS_ITS | Clinical Summary ---
Author Organization [employer] Address [address] [facility] [address] [place] [address] Care Team Providers Care Prototype Engineer Manager Name Role Phone Nicole Felix [facility] Primary Care Provider [phone] Allergies Active Allergy Reactions Criticality Noted Date Comments Methimazole Rash Low 07/08/2021 Medications * This document contains information received from the source organization and may not represent a complete record from that organization. ibuprofen 600 MG tablet Take 600 mg by mouth every 6 (six) hours if needed. 08/13/19 20 Active albuterol 108 (90 Base) MCG/ACT inhalerIndicatio ns:Mild intermittent asthma without complication Inhale 1 puff every 6 (six) hours if needed for wheezing. 18 g 1 05/02/20 24 Active docusate sodium (Colace) 100 MG capsuleIndicatio ns:Slow transit constipation TAKE 1 CAPSULE BY MOUTH EVERY DAY FOR CONSTIPATION 90 capsule 1 05/04/20 24 Active polyethylene glycol, PEG, 3350 (MiraLax) 17 GM/SCOOP powderIndication s:Slow transit constipation MIX 17 GRAMS IN 8 OZ FLUIDS EVERY DAY IF NEEDED FOR CONSTIPATION. 527 g 1 05/04/20 24 Active ketoconazole (NIZOral) 2 % cream Wash hands gently with soap, dry and apply small amount to hands and nails twice daily 60 g 1 10/10/19 25 Active levothyroxine (Synthroid, Levoxyl) 112 MCG tablet Take 1 tablet (112 mcg) by mouth Once per day. 90 tablet 2 10/10/19 25 Active Ketotifen Fumarate 0.035 % solution Administer 1 drop into affected eye(s) if needed in the morning and at bedtime (eye redness, itching). For 1 week 10 mL 12/27/19 25 Active escitalopram (Lexapro) 10 MG tablet Take 1 tablet (10 mg) by mouth Once per day. 30 tablet 2 01/24/20 25 025 Active hydrocortisone 1 % ointment Apply topically 2 times daily. 28 g 1 01/24/20 25 Active trimethoprim-naun ymyxin b (Polytrim) ophthalmic solution Administer 1 drop into the right eye 4 times daily for 7 days. 10 mL 12/27/19 25 025 Active Problems Problem Noted Date Diagnosed Date Depression 10/09/2024 Mild intermittent asthma without complication Assessment & [...] all meds as prescribed Take your vaccines [place] teeth twice a day; floss once. 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 [...] Mri brain/C-spine unremarkable Referred to PMR at [facility] - canceled 3 appts d/t lack of ID [facility]- Dystonia, facial pain possible migraine variant,suggested PM+R OT scheduled for [facility]: no show Assessment & Plan (05/03/2024 [...] and safety training 03/2021: ST eval at [facility] documenting severe communication deficits, recommended weekly sessions x 12 Patient was discharged from care 04/2021 for no show and inability to reach family 09/2022: Mother has been unable to submit the DDS application prepared last year with help of our [facility] [place], and has not been able to prepare recommended guardianship application, very overwhelmed with care of pt and several other children with mental/behavioral health care needs. [facility] [place] ongoing, pt about to transfer care to [facility] now that age 22. Discuss additional supports as pt with documented need for substantial ongoing support. 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 Mother provides care and over whelmed with care giving Patient requires substantial ongoing support. Apply for LINE INSTALLATION SUPERVISOR support for ADLs Will discuss restarting the application process for legal guardianship Encounters * This document contains information received from the source organization and may not represent a complete record from that organization. Date Type Department Care Team Description 01/23/2025 10:30 AM EDT Office Visit [address] [phone] Nicole Felix FNP Postablative hypothyroidism (Primary Dx) 01/23/2025 Travel 01/22/[address] [address] Nicole Felix FNP Chart Prep 01/16/2025 Travel 01/14/[address] [address] Nicole Felix FNP Nurse Triage 01/11/[address] [address] Nicole Felix FNP 12/26/2024 11:00 AM EDT Office Visit [facility] [address] [place] [address] Gerard So MD Acute conjunctivitis of right eye, unspecified acute conjunctivitis type (Primary Dx) 12/26/2024 Travel 12/25/[address] [address] Nicole Felix FNP Nurse Triage 12/17/2024 Patient Outreach [address] [address] Nicole Felix FNP CHW-Operations Officer Trust Department Outreach (Follow up call) 12/07/2024 Telephone [facility] [address] [place] [phone] Kath Olivas OD 11/30/2024 Patient Outreach [address] [address] Nicole Felix FNP CHW-Operations Officer Trust Department Outreach (Follow up call on [place] DDS Application status) 11/05/2024 Patient Outreach [address] [phone] Nicole Felix FNP CHW-Operations Officer Trust Department Outreach (Support on DDS Application ) from Last 3 Months Immunizations Immunization Administration Dates Next Due DTaP, 5 pertussis antigens 07/13/2005,,01/09/2002,11/22,2001 HPV 9-Valent 11/13/2015 HPV, Quadrivalent 07/02/2014 Hep A, ped/adol, 2 dose 11/13/2015,07/02/2014 Hep B, Adolescent or Pediatric 04/12/2002,2001,2001 Hib (PRP-T) 10/03/2002, 2,2001,09/22 IPV 07/13/2005, 2,2001,09/22 Influenza injectable quadriv alent IIV4 with preservative 07/02/2014 Influenza injectable quadriv alent preservative free 06/19/2013 Influenza, IIV3, injectable 04/11/2009 Influenza, Split (incl. michele fied surface antigen) 03/30/2012,04/01/2011 MMR 07/13/2005,07/05/2002 Meningococcal MCV4P ACYW-135 12/30/2017,06/19/20 13 Novel [id number]-[id number], all formulations 04/11/2009 Pneumococcal Conjugate PCV 7 12/28/2002, 01/09/2002,2001,09/22 Tdap 06/19/2013 Varicella 05/03/2014,07/05/2002 Family History Medical History Relation Name Comments Asthma Maternal Grandmother Hypertension Maternal Grandmother Relation Name Status Comments Maternal Grandmother Social History Tobacco Use Types Packs/Day Years Used Date Smoking Tobacco: Never Passive Smoke Exposure: Never Smokeless Tobacco: Never Tobacco Cessation:Counseling Given: Not Answered Alcohol Use Standard Drinks/Week Comments Never 0 (1 standard drink = 0.6 oz pur e alcohol) Depression Answer Date Recorded Patient Health Questionnaire-9 Score 11 11/01/2024 Patient Health Questionnaire-9 Score 11 11/01/2024 Last PHQ-9: Questionnaire Data Not on file 0 11/01/2024 Housing Stability Answer Date Recorded What is [...] the past 12 months, has t he [employer], gas, oil or water company threatened to shut off services in your home? No 05/02/2024 Depression Answer Date Recorded Patient Health Questionnaire-2 Score 4 11/01/2024 Internet Access Answer Date Recorded Internet Access [...] Sign Reading Time Taken Comments Blood Pressure 108/62 01/23/2025 10:57 AM EDT Pulse 60 01/23/2025 10:57 AM EDT Temperature 36.4 C (97.5 F) 01/23/2025 10:57 AM EDT Respiratory Rate 20 01/23/2025 10:57 AM EDT Oxygen Saturation 98% 01/23/2025 10:57 AM EDT Inhaled Oxygen Concentration - - Weight 54.6 kg (120 lb 6 oz) 01/23/2025 10:57 AM EDT Height 159 cm (5' 2.6 ) 01/23/2025 10:57 AM EDT Body Mass Index 21.6 01/23/2025 10:57 AM EDT Plan of Treatment Upcoming Encounters Date Type Department Care Team (Late st Contact Info) Description 03/28/2025 10:00 AM EDT Office Visit [facility] [address] [place] [address] Kath Olivas, OD [address] [place] [address] Health Maintenance Due Date Last Done Comments HIV Screening 2001 Family Planning (PISQ) 2016 Meningococcal B Vaccine (1 of 2 - Standard) 2017 Hepatitis C Screening 2019 Chlamydia and Gonorrhea Screening 01/06/2020 01/05/2019 Pneumococcal Vaccine: Pediatrics (0 to 5 Years) and At-Risk Patients (6 to 49) Years (1 of 2 - PCV) 2020 12/28/2002, 01/09/2002, 2001, Additional history exists Pap Smear 2022 DTaP/Tdap/Td Vaccines (7 - Td or Tdap) 06/19/2023 06/19/2013, 07/13/2005, 12/28/2002, Additional history exists COVID-19 Vaccine ( season) 2024 Influenza Vaccine (#1) 2025 4, 06/19/2013, 03/30/2012, Additional history exists Alcohol/Substance Use Screening 05/02/2025 05/02/2024 SDOH Screening 05/02/2025 05/02/2024 Depression Monitoring 05/04/2025 11/01/2024, 025 Disability Screening 10/03/2025 10/03/2024 Tobacco Screening 01/23/2026 01/23/2025 Zoster Vaccines (1 of 2) 2051 RSV Patients and Patients Aged 60 years or older (1 - 1-dose 75+ series) 2076 Hepatitis B Vaccines Completed 04/12/2002, 2001, 2001 HIB Vaccines Completed 10/03/2002, 03/2002, 2001, Additional history exists IPV Vaccines [...] on patient's age to complete this topic Insurance [facility] C3 Care Teams Prototype Engineer Manager Relationship Specialty Start Date End Date Nicole Felxi FNP [address] [place] [phone] PCP - General Family Medicine 05/02/24
--- OUTSIDE RECORDS SUMMARY | 2025-01-23 12:41 | XMS_ITS | Encounter Summary ---
Author Organization [facility] Address [address] [place] [address] Phone Care Team Providers Care Vocational Trainer Name Role Phone Prema Wright MD Primary Care Provider [phone] Encounter Details Date Type Department Care Team (Late st Contact Info) Description 10/12/2012 Documentation [facility] [place] Family Medicine [address] [place] [address] Family Medicine, Physician [address] [place], [place] [id number] Social History Tobacco Use Types Packs/Day Years [...] on filedocumented in this encounter Care Teams Vocational Trainer Relationship Specialty Start Date End Date Prema Wright MD PCP - General Pediatrics 07/15/20 02/08/23 documented as of this encounter
[2025-01-23 13:52] LABS: Iron 69 mcg/dL (30-160); Percent Iron Saturation 29 % (15-50); Total Iron Binding Capacity 238 mcg/dL (228-428); Unsaturated Iron Binding 169 ug/dL
[2025-01-23 14:05] LABS: Thyroid Stimulating Hormone 0.77 uIU/mL (0.32-4.0)
== END 2025-01-23 12:00 | disposition home or self-care (01) ==
LOC: HO.HHCL 11:59
PROVIDERS: PCP Nurse Practitioner Family; Visit Provider Nurse Practitioner Family
DX: E89.0 Postprocedural hypothyroidism (principal)
CPT/HCPCS: 36415; 82306; 83540; 84443